=== PATIENT | male | born 1985 | race Caucasian/White ===

== ENCOUNTER 2016-12-01 10:08 | Emergency (ER) | payer OTHER ==
--- NOTE | 2016-12-01 11:56 | Emergency Department Report ---
ED Neuro Deficit HPI - General Chief Complaint: Neuro Symptoms/Deficit Stated Complaint: POSS STROKE Time Seen by Provider: 12/01/16 11:33 Source: patient Mode of arrival: Ambulatory Limitations: No Limitations - History of Present Illness Initial Comments: 31-year-old male with no significant past medical history presents to the hospital complains of left-sided facial weakness and numbness for the past 4 days. Symptoms are constant without aggravating alleviating factors. Patient complains of a mild 3/10 headache that improves with aspirin. No other neurologic deficits to arms, legs, or speech. - Related Data Home Medications: Previous Rx's Medication Instructions Recorded Last Taken Type Acyclovir [Zovirax Tab] 400 mg PO 5XD #35 tablet 12/01/16 Unknown Rx Mineral Oil/Petrolatum,White 3.5 gm OP PRN PRN #1 tube 12/01/16 Unknown Rx [Lubricant Eye Ointment] Prednisone [predniSONE 10 mg 10 mg PO .TAPER #1 tab.ds.pk 12/01/16 Unknown Rx (6-Day Pack, 21 Tabs)] predniSONE [Deltasone] 40 mg PO BID 4 Days 12/01/16 Unknown Rx Allergies/Adverse Reactions: Allergies Allergy/AdvReac Type Severity Reaction Status Date / Time No Known Allergies Allergy Unverified 12/01/16 10:14 ED Review of Systems ROS: Stated complaint: POSS STROKE Other details as noted in HPI Comment: Unobtainable due to pts medical conditions Other: Constitutional: No fevers chills Eyes: No eye pain visual changes ENT: No ear pain or throat pain Neck: Denies pain Respiratory: Denies cough wheezing shortness of breath Cardiovascular: Denies chest pain, palpitations GI: Denies abdominal pain, nausea, vomiting, diarrhea : Denies dysuria Musculoskeletal: Denies back pain, Skin: Denies rash, lesions, erythema Neurologic: as per hpi Psychiatric: Denies suicidal ideation, hallucinations ED Past Medical Hx - Past Medical History Previous Medical History?: Yes Additional medical history: KIDNEY STONES - Surgical History Past Surgical History?: No - Social History Smoking Status: Never Smoker Substance Use Type: Alcohol - Medications Home Medications: Home Medications Medication Instructions Recorded Confirmed Last Taken Type Acyclovir [Zovirax Tab] 400 mg PO 5XD #35 tablet 12/01/16 Unknown Rx Mineral Oil/Petrolatum,White 3.5 gm OP PRN PRN #1 tube 12/01/16 Unknown Rx [Lubricant Eye Ointment] Prednisone [predniSONE 10 mg 10 mg PO .TAPER #1 tab.ds.pk 12/01/16 Unknown Rx (6-Day Pack, 21 Tabs)] predniSONE [Deltasone] 40 mg PO BID 4 Days 12/01/16 Unknown Rx ED Neuro Physical Exam - General Limitations: No Limitations Suspected Stroke: No - NIHSS Assessment Interval: Baseline 1a. Level of Consciousness: alert 1b. LOC Questions: answers correctly 1c. LOC Commands: performs tasks correctly 2. Best Gaze: normal 3. Visual: no visual loss 4. Facial Palsy: partial paralysis 5b. Motor Arm Right: no drift 5a. Motor Arm Left: no drift 6a. Motor Leg Left: no drift 6b. Motor Leg Right: no drift 7. Limb Ataxia: absent 8. Sensory: normal 9. Best Language: no aphasia 10. Dysarthria: normal 11. Extinction/Inattention: no abnormality Total Score: 2 Stroke Severity: Minor Stroke - Other Other exam information: General: No limitations, patient is alert in no acute distress Head exam: Atraumatic, normocephalic Eyes exam: Normal appearance, pupils equal reactive to light, extraocular movements intact ENT: Moist mucous membrane, normal oropharynx Neck exam: Normal inspection, full range of motion, no meningismus nontender Respiratory exam: Clear to auscultation bilateral, no wheezes, rales, crackles Cardiovascular: Normal rate and rhythm, normal heart sounds Abdomen: Soft, nondistended, and nontender, with normal bowel sounds, no rebound, or guarding Extremity: Full range of motion normal inspection no deformity Back: Normal Inspection, full range of motion, no tenderness Neurologic: Alert, oriented x3, partial paralysis to the left side of face including forehead. Equal pinprick bilaterally to face, tongue midline Psychiatric: normal affect, normal mood Skin: Warm, dry, intact ED Course Vital Signs 12/01/16 12/01/16 10:14 11:27 Temperature 98.2 F Pulse Rate 74 72 Respiratory 18 16 Rate Blood Pressure 161/89 Blood Pressure 118/63 [Right] O2 Sat by Pulse 99 100 Oximetry - Reevaluation(s) Reevaluation #1: 12/01/16 11:56 intitial blood pressure was elevated but repeat showed improvement. No meds given. No previous history of hypertension - Medical Decision Making Patient has no CVA risk factors and has left-sided facial paralysis including the forehead. No other neuro deficit on exam. 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 ED Disposition Clinical Impression: Roper's palsy Disposition: DISCHARGED TO HOME OR SELFCARE Is pt being admited?: No Does the pt Need Aspirin: No Condition: Stable Instructions: Roper Palsy (ED) Additional Instructions: Take acyclovir and Lacri-Lube as prescribed. Use an eye shield to protect your left eye at night time. Start with the prednisone 40 mg twice a day for 4 days plan start the prednisone taper over 6 days. Follow up with the Primary care clinic and either neurologist provided. [place] aciclovir y Lacri-Lube segn lo prescrito. Use un protector ocular para proteger jones gena raphael mercy la noche. Comenzar con la prednisona 40 mg dos veces al da mercy 4 pierre comenzar el tratamiento con prednisona mercy 6 pierre. Seguimiento con la clnica de atencin primaria y cualquiera de los neur logos proporcionados. Prescriptions: Acyclovir [Zovirax Tab] 400 mg PO 5XD #35 tablet Mineral Oil/Petrolatum,White [Lubricant Eye Ointment] 3.5 gm OP PRN PRN #1 tube PRN Reason: Dry Eye(S) Prednisone [predniSONE 10 mg (6-Day Pack, 21 Tabs)] 10 mg PO .TAPER #1 tab.ds.pk predniSONE [Deltasone] 40 mg PO BID 4 Days Referrals: MICHAEL URBANO MD [Staff Physician] - 3-5 Days (Neurologist ) JEANE CASTRO MD [Staff Physician] - 3-5 Days (neurologist ) [facility] [Provider Group] - 3-5 Days (primary care doctor) Print Language: AZERI
[2016-12-01 13:11] VITALS: BP 110/76
== END 2016-12-01 12:46 | disposition home or self-care (01) ==
LOC: ED 10:08
DX: G51.0 Bell's palsy (principal)
CPT/HCPCS: 99282